=== PATIENT | female | born 1960 | race African-American/Black ===

== ENCOUNTER 2017-03-06 15:14 | Emergency (ER) | payer BC ==
[2017-03-06 18:54] VITALS: BP 124/90
== END 2017-03-06 18:54 | disposition home or self-care (01) ==
LOC: ED 15:14
DX: M54.2 Cervicalgia (principal); Z90.710 Acquired absence of both cervix and uterus; V43.52XA Car driver injured in collision with other type car in traffic accident, initial encounter; Y93.I9 Activity, other involving external motion; Y92.488 Other paved roadways as the place of occurrence of the external cause; Y99.8 Other external cause status
CPT/HCPCS: J1885